=== PATIENT | male | born 1995 | race Two or more races ===

== ENCOUNTER 2020-06-25 21:15 | Emergency (ER) | payer OTHER ==
[~2020-06-25] VITALS: Ht 170.2 cm; Wt 127.0 kg
[2020-06-25 21:30] VITALS: BP 154/95
--- NOTE | 2020-06-25 22:59 | RAD ---
Exam: Right knee 3 views INDICATION: Right knee pain after fall TECHNIQUE: Frontal, lateral and oblique views of the right knee Comparisons: None FINDINGS: Bone mineralization is normal. Soft tissue edema overlying the proximal tibia. Bone mineralization is normal. No acute or healed fractures. IMPRESSION: Soft tissue swelling overlying the anterior tibia without underlying osseous abnormality identified. Electronically signed by: Bakari Dupont MD (06/25/2020 10:55 PM) [id number]
--- NOTE | 2020-06-25 23:25 | PHYS DOC ---
Past Medical History Past Medical History: No Pertinent History Past Surgical History: No Surgical History Smoking Status: Never Smoker Alcohol Use: Occasionally General Adult EDM: Chief Complaint: MECHANICAL FALL HPI: HPI: Patient is a 25 year old male who presents to the emergency department via EMS with complaints of pain below his right knee. Patient states that he was at work when he accidentally stepped into a hole and fell. Patient reports that he has been able to bear weight but reports pain to his lower medial right knee. He denies any numbness, tingling, or decreased range of motion of the affected joint. He currently rates pain a 2 out of 10 on the pain scale, he denies any radiation of the pain. Patient states he did not take anything for relief of the pain. He states that the pain is worse with palpation, weightbearing, and movement. Review of Systems: Review of Systems: Constitutional: Denies fever or chills. [] Musculoskeletal: See HPI Integument: Reports abrasions to the front of the right knee, no active bleeding Neurologic: Denies headache, focal weakness or sensory changes. [] Psychiatric: Denies depression or anxiety. [] Heart Score: Risk Factors: Risk Factors: DM, Current or recent (<one month) smoker, HTN, HLP, family history of CAD, obesity. Risk Scores: Score 0 - 3: 2.5% MACE over next 6 weeks - Discharge Home Score 4 - 6: 20.3% MACE over next 6 weeks - Admit for Clinical Observation Score 7 - 10: 72.7% MACE over next 6 weeks - Early Invasive Strategies Allergies: Allergies: Allergies Coded Allergies Type Severity Reaction Last Updated Verified No Known Drug Allergies 06/25/20 No Physical Exam: PE: Constitutional: Well developed, well nourished, no acute distress, non-toxic appearance, obese. [] HENT: Normocephalic, atraumatic, bilateral external ears normal, nose normal. [] Eyes: PERRLA, EOMI, conjunctiva normal, no discharge. [] Neck: Normal range of motion, no stridor. [] Cardiovascular:Heart rate regular rhythm Lungs & Thorax: Respirations even and unlabored, no retractions, no respiratory distress Skin: Warm, dry, no erythema, no rash. [] Extremities: Right knee, medial anterior tenderness to palpation without c repitus or obvious deformity, 1+ edema, negative anterior/posterior drawer testing, negative stress testing, PMS intact, no cyanosis Neurologic: Alert and oriented X 3, no focal deficits noted. [] Psychologic: Affect normal, judgement normal, mood normal. [] Current Patient Data: Vital Signs: Vital Signs Date Time Temp Pulse Resp B/P (MAP) Pulse Ox O2 Delivery O2 Flow Rate FiO2 06/25/20 21:30 99.9 90 16 154/95 (114) 100 Room Air 99.9 EKG: EKG: [] Radiology/Procedures: Radiology/Procedures: PROCEDURE: KNEE RIGHT 3V Exam: Right knee 3 views INDICATION: Right knee pain after fall TECHNIQUE: Frontal, lateral and oblique views of the right knee Comparisons: None FINDINGS: Bone mineralization is normal. Soft tissue edema overlying the proximal tibia. Bone mineralization is normal. No acute or healed fractures. IMPRESSION: Soft tissue swelling overlying the anterior tibia without underlying osseous abnormality identified.[] Course & Med Decision Making: Course & Med Decision Making Pertinent Labs and Imaging studies reviewed. (See chart for details) [] Dragon Disclaimer: Dragon Disclaimer: This electronic medical record was generated, in whole or in part, using a voice recognition dictation system. Departure Departure Impression: Primary Impression: Right medial knee pain Disposition: 01 HOME, SELF-CARE Condition: STABLE Referrals: CHIARA COOMBS MD Patient Instructions: Knee Immobilizer, [id number], Knee Pain, [id number] Additional Instructions: You may take Tylenol or ibuprofen as needed for pain. Recommend application of ice, elevation, and rest of affected extremity. Activity as tolerated wear the splint that was placed until follow up appointment with Dr. Coombs. Return to the ER if your symptoms worsen. Justicifation of Admission Dx: Justifications for Admission: Justification of Admission Dx: N/A Splinting Splinting : Location: Right leg Pre-Made Type: knee immobilizer Pre-Proc Neuro Vasc Exam: normal Post-Proc Neuro Vasc Exam: normal, unchanged from pre-exam PRETTY GARY APRN Jun 25, 2020 23:25
== END 2020-06-25 23:35 | disposition home or self-care (01) ==
LOC: ER 21:15
DX: M25.561 Pain in right knee (principal)
CPT/HCPCS: 29505; 73562; 99284